=== PATIENT | female | born 1985 | race Caucasian/White ===

== ENCOUNTER 2022-05-25 09:38 | Emergency (ER) | payer MEDICAID ==
[~2022-05-25] VITALS: Ht 167.6 cm; Wt 65.5 kg
[~2022-05-25 09:38] MED LIST: NO HOME MEDS
[2022-05-25 10:37] LABS: URINE HCG NEGATIVE (NEG)
[2022-05-25 10:41] LABS: CLARITY,URINE CLOUDY (Clear); COLOR,URINE YELLOW (Yellow); GLUCOSE, URINE NEGATIVE (Neg); KETONES,URINE NEGATIVE (Neg); LEUKOCYTE ESTERASE ,URINE NEGATIVE (Neg); NITRITES, URINE NEGATIVE (Neg); OCCULT BLOOD,URINE MODERATE (Neg); PROTEIN,URINE 30 mg/dl (Neg); UROBILINOGEN,URINE 0.2 E.U/dL (0.2-1.0)
[2022-05-25] MEDS ORDERED: pantoprazole 40 MG vial IV ONE (10:45)
[2022-05-25] MEDS ORDERED: ondansetron/PF 4mg/2ml inj IV ONE (10:45)
[2022-05-25 10:50] LABS: UA COLLECTION TYPE CLN CATCH MIDSTREAM
[2022-05-25 10:53] LABS: BACTERIA,URINE FEW /HPF (Neg); MUCUS STRANDS FEW /LPF (Neg); SQUAMOUS EPITHELIAL CELL,UR MODERATE /LPF (FEW); WBC,URINE 0-4 /HPF (0-4)
[2022-05-25] MEDS ORDERED: normal saline 1000ML IV soln IVB ONE (10:55)
[2022-05-25] MEDS ORDERED: ketorolac tromethamine 15mg/ml inj. IV ONE (10:55)
[2022-05-25] MEDS ORDERED: pantoprazole 40MG/NS 100ML BAG 100 ML IV ONE (11:00)
[2022-05-25] MEDS: morphine 2 MG/ML inj. syringe IV PRN ×3 (11:14→11:46)
[2022-05-25 11:38] LABS: BASOPHILS # (AUTO) 0.1 X10'3 (0-0.2); BASOPHILS % (AUTO) 0.5 % (0-1); EOSINOPHILS # (AUTO) 0.1 X10'3 (0-0.9); EOSINOPHILS % (AUTO) 0.4 % (0-6); HEMATOCRIT 41.7 % (35.0-45.0); LYMPHOCYTES # (AUTO) 2.2 X10'3 (1.1-4.8); LYMPHOCYTES % (AUTO) 15.7 % (21-51); MEAN CORPUSCULAR HEMOGLOBIN 30.6 PG (27.0-31.0); MEAN CORPUSCULAR HGB CONC 33.5 g/dL (33.0-36.5); MEAN CORPUSCULAR VOLUME 91.4 FL (78-98); MEAN PLATELET VOLUME 8.2 FL (7.4-10.4); MONOCYTES # (AUTO) 0.8 X10'3 (0-0.9); MONOCYTES % (AUTO) 5.5 % (2-12); NEUTROPHILS # (AUTO) 10.9 X10'3 (1.8-7.7); NEUTROPHILS % (AUTO) 77.9 % (42-75); PLATELET COUNT 294 X10'3 (140-440); RED BLOOD COUNT 4.56 X10'6 (4.20-5.60); RED CELL DISTRIBUTION WIDTH 13.2 % (11.5-14.5)
[2022-05-25] MEDS ORDERED: proCHLORperazine 10 MG/2 ml inj IV ONE (11:45)
[2022-05-25 12:30] VITALS: BP 136/96
[2022-05-25 12:54] LABS: ALANINE AMINOTRANSFERASE 18 U/L (12-78); ALBUMIN 3.6 G/DL (3.4-5.0); ALBUMIN/GLOBULIN RATIO 1.3 (1.1-1.5); ANION GAP 7 (8-16); ASPARTATE AMINO TRANSFERASE 11 U/L (10-37); BILIRUBIN,TOTAL 0.3 MG/DL (0.1-1.0); BLOOD UREA NITROGEN 15 MG/DL (7-18); BUN/CREATININE RATIO 15.6 (6.6-38.0); CHLORIDE 106 MMOL/L (99-107); CREATININE 0.96 MG/DL (0.40-0.90); GLUCOSE 116 MG/DL (70-104); POTASSIUM 3.9 MMOL/L (3.5-5.1); SODIUM 138 MMOL/L (135-145); TOTAL PROTEIN 6.4 G/DL (6.4-8.2); eGFR 66 ML/MIN
[2022-05-25 12:55] LABS: ALKALINE PHOSPHATASE 56 IU/L (46-116)
== END 2022-05-25 14:00 | disposition home or self-care (01) ==
LOC: ER 09:39
DX: R10.31 Right lower quadrant pain (principal)
CPT/HCPCS: 36415; 74176; 80053; 81001; 81025; 85025; 96374; 96375; 96376; 99284; C9113; J0780; J1885; J2270; J2405; J7030

== ENCOUNTER 2023-01-24 19:36 | Emergency (ER) | payer MEDICAID ==
[~2023-01-24] VITALS: Ht 167.6 cm; Wt 62.3 kg
[2023-01-24 20:25] VITALS: BP 119/90
[2023-01-24] MEDS ORDERED: cephalexin 250mg capsule PO ONE (20:45)
[2023-01-24] MEDS ORDERED: LIDOcaine 1% W/epiNEPHrine 1:100,000 20ml vial IJ ONE (20:45)
[2023-01-24] MEDS ORDERED: CEPH-585 PO (20:45)
[2023-01-24] MEDS ORDERED: bacitracin 15gm ointment TP ONE (20:45)
[2023-01-24] MEDS ORDERED: LIDOcaine 1% W/epiNEPHrine 1:200,000 10ml vial IJ ONE (20:45)
== END 2023-01-24 21:47 | disposition home or self-care (01) ==
LOC: ER 19:36
DX: L02.31 Cutaneous abscess of buttock (principal); Z98.890 Other specified postprocedural states; Z56.0 Unemployment, unspecified
CPT/HCPCS: 10060; 99283

== ENCOUNTER 2023-04-29 00:01 | Emergency (ER) | payer MEDICAID ==
[~2023-04-29] VITALS: Ht 167.6 cm; Wt 63.6 kg
[~2023-04-29 00:01] MED LIST changes: +CEPH-585 PO
[2023-04-29 00:15] VITALS: BP 114/74; TEMP 98
[2023-04-29] MEDS ORDERED: TETanus/Pertussis (Acell)/Diphther VAC/PF (Tdap-Adult) 0.5ml syringe IMVAC ONE (00:25)
[2023-04-29] MEDS ORDERED: ondansetron 4mg rapidly disintigrating tab PO ONE (00:30)
[2023-04-29 01:57] VITALS: PULSE 100; RESP 16; O2SAT 98
== END 2023-04-29 01:59 ==
LOC: ER 00:01
DX: S80.812A Abrasion, left lower leg, initial encounter (principal); R11.0 Nausea; X58.XXXA Exposure to other specified factors, initial encounter; Y93.89 Activity, other specified; Y92.89 Other specified places as the place of occurrence of the external cause; Y99.8 Other external cause status
CPT/HCPCS: 99283